=== PATIENT | female | born 1965 | race Caucasian/White ===

== ENCOUNTER 2016-08-16 14:44 | Emergency (ER) | payer BC ==
[2016-08-16 16:31] VITALS: BP 134/76
--- NOTE | 2016-08-16 18:23 | ED ---
Complex/Multi-Sys Presentation - HPI Summary HPI Summary: Patient presents with feelings that her wrists and ankles are swollen. Two days ago she felt the area under her eyes were more swollen than usual, since they are typically mildly swollen. 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 She denies any other symptoms or concerns. No CP, SOB, pain, abdominal or back pain. She mentions that she started taking 3 new homeopathic supplements 5 days ago as per her primary care provider, and these might be the culprits. - History Of Current Complaint Chief Complaint: EDGeneral Time Seen by Provider: 08/16/16 17:41 Hx Obtained From: Patient Onset/Duration: Gradual Onset Timing: Constant, Days - 2 Severity Currently: Mild Severity Initially: Mild Location: Negative Aggravating Factor(s): nothing Alleviating Factor(s): nothing Associated Signs And Symptoms: Positive: Edema - Allergies/Home Medications Allergies/Adverse Reactions: Allergies Allergy/AdvReac Type Severity Reaction Status Date / Time Aspirin Allergy "blood Verified 10/23/15 12:30 blisters" Enoxaparin [From Lovenox] Allergy Unknown Verified 10/23/15 12:30 Reaction Details PMH/Surg Hx/FS Hx/Imm Hx Endocrine/Hematology History: Reports: Other Endocrine/Hematological Disorders - Factor V Leiden Denies: Hx Diabetes Cardiovascular History: Denies: Hx Hypertension, Hx Pacemaker/ICD Respiratory History: Denies: Hx Asthma GI History: Reports: Hx Diverticulosis Denies: Hx Gastroesophageal Reflux Disease, Hx Gastrointestinal Bleed Sensory History: Denies: Hx Hearing Aid Neurological History: Reports: Hx Transient Ischemic Attacks (TIA) Psychiatric History: Denies: Hx Panic Disorder - Cancer History Hx Chemotherapy: No Hx Radiation Therapy: No - Surgical History Surgery Procedure, Year, and Place: d/c 1995.WISDOM TEETH Infectious Disease History: Denies: Traveled Outside the [place] in Last 30 Days - Family History Known Family History: Positive: None - Social History Occupation: Employed Full-time Lives: With Family Alcohol Use: Occasionally Substance Use Type: Reports: None Smoking Status (MU): Former Smoker Review of Systems Negative: Fever, Chills Negative: Chest Pain Negative: Shortness Of Breath Negative: Abdominal Pain Positive: Edema. Negative: Myalgia, Decreased ROM Negative: Bruising Negative: Headache, Weakness, Paresthesia, Numbness All Other Systems Reviewed And Are Negative: Yes Physical Exam - Summary Physical Exam Summary: Patient is seated on exam table in no acute distress with appropriate affect. Triage Information Reviewed: Yes Vital Signs On Initial Exam: Initial Vitals Temp Pulse Resp BP Pulse Ox 98 F 68 14 135/95 98 08/16/16 14:48 08/16/16 14:48 08/16/16 14:48 08/16/16 14:48 08/16/16 14:48 Vital Signs Reviewed: Yes Appearance: Positive: Well-Appearing, No Pain Distress, Well-Nourished Skin: Positive: Warm, Skin Color Reflects Adequate Perfusion, Dry, Soft Head/Face: Positive: Normal Head/Face Inspection Eyes: Positive: EOMI, LAURO, Conjunctiva Clear ENT: Positive: Hearing grossly normal, Pharynx normal Neck: Positive: Supple, Nontender, No Lymphadenopathy Respiratory/Lung Sounds: Positive: Clear to Auscultation, Breath Sounds Present Cardiovascular: Positive: RRR Abdomen Description: Positive: Nontender, Soft. Negative: CVA Tenderness (R), CVA Tenderness (L), Distended, Guarding Bowel Sounds: Positive: Present Musculoskeletal: Positive: Strength/ROM Intact. Negative: Pain @, Starla Sign Left, Starla Sign Right, Edema Left - I can not appreciate edema. Wrists and ankles are symmetric., Edema Right - I can not appreciate edema. Wrists and ankles are symmetric. Neurological: Positive: Sensory/Motor Intact, Alert, Oriented to Person Place, Time, NV Bundle Intact Distally, Normal Gait Psychiatric: Positive: Affect/Mood Appropriate AVPU Assessment: Alert Diagnostics - Vital Signs Vital Signs Temp Pulse Resp BP Pulse Ox 08/16/16 16:26 73 16 134/76 100 08/16/16 14:48 98 F 68 14 135/95 98 - Laboratory Result Diagrams: 08/16/16 18:20 08/16/16 18:20 Lab Statement: Any lab studies that have been ordered have been reviewed, and results considered in the medical decision making process. - Radiology No standard instances Xray Interpretation: No Acute Changes Radiology Interpretation Completed By: Radiologist - EKG No standard instances Cardiac Rate: NL EKG Rhythm: Sinus Rhythm ST Segment: Normal Ectopy: None Complex Multi-Symp Course/Dx - Diagnoses Differential Diagnoses/HQI/PQRI: Metabolic Abnormality, Sepsis, Urinary Tract Infection Provider Diagnoses: Edema extremities Discharge - Discharge Plan Condition: Stable Disposition: HOME Patient Education Materials: Edema (ED) Referrals: Jarrod Lee MD [Primary Care Provider] - Additional Instructions: Please follow-up with your primary care provider in the next 2-5 days. Return to the emergency department if symptoms worsen.
[2016-08-16 18:37] LABS: Hematocrit 37 % (35-47); Hemoglobin 12.4 g/dl (12.0-16.0); Mean Corpuscular HGB Conc 33 g/dl (31-36); Mean Corpuscular Hemoglobin 31 pg (27-31); Mean Corpuscular Volume 93 fL (80-97); Mean Platelet Volume 9 um3 (7.4-10.4); Red Blood Count 3.98 10^6/ul (4.0-5.4); Red Cell Distribution Width 13 % (10.5-15); White Blood Count 4.9 10^3/ul (3.5-10.8)
[2016-08-16 18:40] LABS: Urine Bacteria Absent (Absent); Urine Bilirubin Negative (Negative); Urine Glucose Negative (Negative); Urine Nitrite Negative (Negative)
[2016-08-16 18:53] LABS: Albumin 4.2 g/dL (3.2-5.2); BUN/Creatinine Ratio 17.7 (8-20); Calcium 9.4 mg/dL (8.6-10.3); EGFR African American 132.1 (>60); EGFR Non-African American 102.7 (>60); Globulin 2.3 g/dL (2-4); Total Bilirubin 0.3 mg/dL (0.2-1.0); Total Protein 6.5 g/dL (6.4-8.9)
--- NOTE | 2016-08-16 18:56 | RAD ---
INDICATION: Acute fluid retention. COMPARISON: Comparison is made with a prior chest x-ray study from July 06, 2006. TECHNIQUE: Dual-energy PA and lateral views of the chest were obtained. FINDINGS: The heart is within normal limits in size. Mediastinal and hilar contours appear within normal limits. There is minimal subsegmental atelectasis at the left lung base. The lungs are otherwise clear. No pleural effusion is seen. IMPRESSION: NO EVIDENCE FOR ACTIVE CARDIOPULMONARY DISEASE.
[2016-08-16] MEDS ORDERED: Potassium Chlor TAB* 20 MEQ TAB.ER PO ONE (19:07)
== END 2016-08-16 19:39 | disposition home or self-care (01) ==
LOC: ED 14:44
DX: R60.0 Localized edema (principal); Z87.891 Personal history of nicotine dependence
CPT/HCPCS: 36415; 71020; 80053; 81003; 81015; 83880; 85025; 87086; 93005; 99282; A9270-GY